=== PATIENT | female | born 1950 | race African-American/Black ===

== ENCOUNTER 2019-04-09 05:09 | Emergency (ER) | payer MEDICARE, BC ==
[~2019-04-09] VITALS: Ht 167.6 cm; Wt 70.0 kg
[~2019-04-09 05:09] MED LIST: ANTIHYPERTENSIVE; ASPIRIN EC LOW81 MG PO; AUGMENTIN500TAB PO; BACTRIM DS1 TAB PO; BAYER ASA325 MG PO; BENTYL10 MG PO; CIPROFLOXACIN250 MG OR; CIPROFLOXACN500 MG PO; CLORAZ DIPOT7.5 MG OR; CLORAZ DIPOT7.5 MG PO; IRON325 M1 PO; LISI20TA5 OP; LISINOPRIL10 MG PO; LISINOPRIL5 MG PO; MEDDOSEPAK OR; PREVACID15 M1 PO; PREVACID30 M1 PO; PREVPAC OR; PRILOSEC20 MG OR; TRANXENE T7.5 MG PO; TUMS500 MG OR; VESICARE5 MG OR; ZYRTEC-D ALG OR
[2019-04-09] MEDS ORDERED: FISH OIL1000 M2 PO (05:29)
[2019-04-09] MEDS ORDERED: ASPIRINCHW 81MG PO (05:30)
[2019-04-09] MEDS ORDERED: ATORVASTATIN CA40 MG PO (05:30)
[2019-04-09] MEDS ORDERED: VITAMIN D32000 UNI3 PO (05:31)
[2019-04-09] MEDS ORDERED: VITAMIN B 6100 MG PO (05:32)
[2019-04-09] MEDS ORDERED: FOSAMAX PLUS PO (05:33)
[2019-04-09] MEDS ORDERED: FOLIC ACID1 M1 PO (05:33)
[2019-04-09] MEDS ORDERED: LOSARTAN POTASS50 MG PO (05:34)
[2019-04-09] MEDS ORDERED: MEDDOSEPAK PO ×2 (06:02→06:05)
[2019-04-09 06:15] VITALS: BP 150/80
== END 2019-04-09 06:19 | disposition home or self-care (01) ==
LOC: ED 05:09
DX: R09.89 Other specified symptoms and signs involving the circulatory and respiratory systems (principal); T44.7X5A Adverse effect of beta-adrenoreceptor antagonists, initial encounter; I10 Essential (primary) hypertension

== ENCOUNTER 2019-06-19 05:42 | Emergency (ER) | payer MEDICARE, BC ==
[~2019-06-19] VITALS: Ht 167.6 cm; Wt 68.1 kg
[~2019-06-19 05:42] MED LIST changes: +ASPIRINCHW 81MG PO; +ATORVASTATIN CA40 MG PO; +FISH OIL1000 M2 PO; +FOLIC ACID1 M1 PO; +FOSAMAX PLUS PO; +LOSARTAN POTASS50 MG PO; +MEDDOSEPAK PO; +VITAMIN B 6100 MG PO; +VITAMIN D32000 UNI3 PO
[2019-06-19] MEDS ORDERED: MEDDOSEPAK PO (07:48)
[2019-06-19] MEDS ORDERED: COREG12.5 MG PO (07:58)
[2019-06-19] MEDS ORDERED: ACID CONTROL MA20 MG PO (08:01)
[2019-06-19] MEDS ORDERED: LEVOCETIRIZINE D5 MG PO (08:01)
[2019-06-19 08:32] VITALS: BP 155/80
== END 2019-06-19 08:32 | disposition home or self-care (01) ==
LOC: ED 05:42
DX: T78.3XXA Angioneurotic edema, initial encounter (principal); I10 Essential (primary) hypertension

== ENCOUNTER 2019-07-30 | Emergency (ER) | payer MEDICARE, BC ==
[~2019-07-30] MED LIST changes: +ACID CONTROL MA20 MG PO; +COREG12.5 MG PO; +LEVOCETIRIZINE D5 MG PO
[2019-07-30 18:42] LABS: HEMATOCRIT 35.9 % (37.0-47.0); IMMATURE GRANULOCYTES 0.4 % (0.0-5.0); MEAN CELL VOLUME 86.3 fL CALC (80.0-100.0); MEAN CORPUSCULAR HGB 26.4 pG CALC (26.0-32.0); MEAN CORPUSCULAR HGB CONC 30.6 g/L CALC (32.0-36.0); NEUT# 5.34 thou/uL (2.00-7.15); RED BLOOD COUNT 4.16 mill/uL (4.20-5.60)
[2019-07-30 18:56] LABS: ANION GAP 11 (6-22 (CALC)); BUN 13 mg/dL (8-23); BUN/CREATININE RATIO 16 (12-20 (CALC)); CARBON DIOXIDE 27 mmol/l (22-30); CHLORIDE 105 mmol/l (95-108); CREATININE 0.8 mg/dL (0.5-1.0); GFR > 60 ML/MIN (>=60 (CALC)); GFR FOR AFR.AMER. > 60 ML/MIN (>=60 (CALC)); POTASSIUM 4.5 mmol/l (3.5-5.1); SODIUM 138 mmol/l (137-146)
== END 2019-07-30 20:05 | disposition left against medical advice (07) ==
PROVIDERS: Family Medicine
DX: T78.3XXA Angioneurotic edema, initial encounter (principal); I10 Essential (primary) hypertension; Z91.19 Patient's noncompliance with other medical treatment and regimen

== ENCOUNTER 2019-08-03 01:50 | Observation (INO) | payer MEDICARE, BC ==
[~2019-08-03] VITALS: Ht 167.6 cm; Wt 70.3 kg
--- NOTE | 2019-08-03 02:02 | NUR ---
AMBULATED TO ROOM
--- NOTE | 2019-08-03 04:17 | NUR ---
PT SLEEPING. NAD
--- NOTE | 2019-08-03 04:40 | NUR ---
PT WAKES UP AND STATES SHE FEELS BETTER.
--- NOTE | 2019-08-03 05:35 | NUR ---
REPORT TO CHRISTOPHER GARNER/ICU
--- NOTE | 2019-08-03 05:45 | NUR ---
TO FLOOR VIA W/C. NAD.
[2019-08-03 06:00] VITALS: BP 148/77
[2019-08-03 06:15] VITALS: BP 152/83
[2019-08-03 06:30] VITALS: BP 139/83
--- NOTE | 2019-08-03 06:37 | NUR ---
PT. ARRIVES VIA WHEELCHAIR FROM ER. AMBULATORY WITH STEADY GAIT FROM WHEELCHAIR TO ICU BED. PT. STABLE. RESPS EVEN AND UNLABORED. ORIENTED TO CALL L[facility] SYSTEM. MAE. KINCAID. SPEECH SOMEWHAT GARBLED, BUT PT. STATES DUE TO TONGUE SWELLING. FULLNESS/MILD SWELLING NOTED TO LT. SIDE OF TONGUE. NO OTHER EDEMA NOTED. WILL CONTINUE TO CLOSELY MONITOR.
--- NOTE | 2019-08-03 07:00 | NUR ---
REPORT RECEIVED FROM CHRISTOPHER GARNER;PT RESTING IN SEMI FOWLERS POSITION;INTRODUCED SELF TO PT AND POC DISCUSSED;RESPIRATIONS EVEN AND UNLABORED ON RA;PT DENIES ANY CURRENT PAIN OR NEEDS;CARDIAC MONITORING IN PLACE;PT DENIES ANY ADDITIONAL NEEDS AND IS ENCOURAGED TO CALL FOR ASSISTANCE IF NEEDED;BED IN THE LOWEST POSITION WITH CALL LIGHT IN REACH;WILL CONTINUE TO MONITOR
[2019-08-03 07:30] VITALS: BP 152/73
--- NOTE | 2019-08-03 07:30 | NUR ---
PT SLEEPING IN SUPINE POSITION,WAKES EASILY TO VERBAL STIMULI;PT A&O X3,VS OBTAINED AND ASSESSMENT COMPLETED;PT DENIES ANY CURRENT PAIN OR DISCOMFORTS,PAIN SCALE AND REPORTING EDUCATED;RESPIRATIONS EVEN AND UNLABORED ON RA,CLEAR LUNG SOUNDS;ABDOMEN SOFT ON PALPATION AND ACTIVE IN ALL 4 QUADRANTS;STRONG PEDAL PULSES;SKIN INTACT;MILD EDEMA NOTED TO LEFT SIDED TONGUE PT REPORTS "ITS MUCH BETTER THAN WHAT IT WAS";CARDIAC MONITORING IN PLACE READING SR;#22G TO LAC FLUSHED AND PATENT,SITE APPEARS HEALTHY;NPO DIET REINFORCED;PT DENIES ANY ADDITIONAL NEEDS AT THIS TIME AND IS ENCOURAGED TO CALL FOR ASSISTANCE IF NEEDED;CALL LIGHT IN REACH;WILL CONTINUE TO MONITOR
--- NOTE | 2019-08-03 08:22 | NUR ---
AT BEDSIDE DISCUSSING POC WITH PT AND VISITOR.
[2019-08-03] MEDS ORDERED: PREDNISONE20 MG PO (08:35)
[2019-08-03] MEDS ORDERED: BENADRYL 50MG C50 MG PO (08:35)
--- NOTE | 2019-08-03 09:13 | NUR ---
ALL DISCHARGE INSTRUCTIONS PROVIDED AT THIS TIME;PT INSTRUCTED TO F/U WITH PCP AND DOCUMENTATION ANALYST;RX FOR PREDNISONE AND BENYDRL FAXED TO [facility] PER PT REQUEST;IV SITE REMOVED AND CARDIAC MONITORIG D/C;PT DENIES ANY ADDITIONAL NEEDS AT THIS TIME;PT REFUSES WHEELCHAIR FOR D/C HOME;FAMILY TO TRANSPORT PT HOME.
--- NOTE | 2019-08-03 09:20 | NUR ---
Discharge instructions given. Patient verbalizes understanding of same. Discharged in stable condition via Ambulatory to Home with family. All belongings sent with pt. PT AMBULATED TO [facility] IN STABLE CONDITION FOR D/C HOME ACCOMPANIED BY FAMILY.FAMILY TO TRANSPORT PT HOME.
== END 2019-08-03 09:20 | disposition home or self-care (01) ==
LOC: ED 01:50 → ED-I 02:15 → ED 05:21 → ICU 05:22
PROVIDERS: ADMIT Internal Medicine; ATTEND Internal Medicine
DX: T78.3XXA Angioneurotic edema, initial encounter (principal); I10 Essential (primary) hypertension; E78.5 Hyperlipidemia, unspecified; K21.9 Gastro-esophageal reflux disease without esophagitis

== ENCOUNTER 2019-08-06 | Emergency (ER) | payer MEDICARE, BC ==
[~2019-08-06] MED LIST changes: +BENADRYL 50MG C50 MG PO; +PREDNISONE20 MG PO
[2019-08-06 18:04] LABS: HEMATOCRIT 33.8 % (37.0-47.0); HEMOGLOBIN 10.7 g/dl (12.0-16.0); IMMATURE GRANULOCYTES 0.7 % (0.0-5.0); MEAN CELL VOLUME 85.6 fL CALC (80.0-100.0); MEAN CORPUSCULAR HGB 27.1 pG CALC (26.0-32.0); MEAN CORPUSCULAR HGB CONC 31.7 g/L CALC (32.0-36.0); NEUT# 5.44 thou/uL (2.00-7.15); RED BLOOD COUNT 3.95 mill/uL (4.20-5.60)
[2019-08-06] MEDS ORDERED: BANOPHEN50 MG PO (18:09)
[2019-08-06 18:30] LABS: ALBUMIN 4.2 g/dL (3.2-5.0); BILIRUBIN, TOTAL 0.7 mg/dL (0.0-1.4); CREATININE 1.1 mg/dL (0.5-1.0); POTASSIUM 4.5 mmol/l (3.5-5.1); TOTAL PROTEIN 7.2 g/dL (6.3-8.2)
== END 2019-08-06 21:39 | disposition home or self-care (01) ==
PROVIDERS: Family Medicine
DX: T78.3XXA Angioneurotic edema, initial encounter (principal); I10 Essential (primary) hypertension

== ENCOUNTER 2019-08-19 | Emergency (ER) | payer MEDICARE, BC ==
[~2019-08-19] MED LIST changes: +BANOPHEN50 MG PO
== END 2019-08-19 10:34 | disposition home or self-care (01) ==
DX: T78.3XXA Angioneurotic edema, initial encounter (principal); I10 Essential (primary) hypertension

== ENCOUNTER 2019-09-02 | Emergency (ER) | payer MEDICARE, BC ==
[2019-09-02] MEDS ORDERED: MEDDOSEPAK PO (09:07)
== END 2019-09-02 09:15 | disposition home or self-care (01) ==
DX: T78.3XXA Angioneurotic edema, initial encounter (principal); I10 Essential (primary) hypertension

== ENCOUNTER 2021-09-17 11:51 | Emergency (ER) | payer MEDICARE, BC ==
[~2021-09-17] VITALS: Ht 167.6 cm; Wt 70.0 kg
[2021-09-17 12:31] LABS: URINE BILIRUBIN - DIPSTICK NEGATIVE (NEGATIVE); URINE BLOOD DIPSTICK NEGATIVE (NEGATIVE); URINE COLOR YELLOW; URINE GLUCOSE - DIPSTICK NEGATIVE (NEGATIVE); URINE KETONE NEGATIVE (NEGATIVE); URINE LEUK ESTERASE NEGATIVE (NEGATIVE); URINE PROTEIN - DIPSTICK NEGATIVE (NEG-TRACE); URINE SPECIFIC GRAVITY 1.015; URINE UROBILINOGEN - DIPSTICK 0.2 E.U./dL (0.2)
[2021-09-17 12:33] LABS: URINE NITRITE - DIPSTICK NEGATIVE (Negative)
[2021-09-17] MEDS ORDERED: CLORAZ DIPOT7.5 MG PO (12:41)
[2021-09-17] MEDS ORDERED: ULTRAM50 MG PO (13:54)
[2021-09-17] MEDS ORDERED: FLEXERIL5 M1 PO (13:54)
[2021-09-17 14:23] VITALS: BP 160/96
== END 2021-09-17 14:23 | disposition home or self-care (01) ==
LOC: ED 11:51
DX: M51.87 Other intervertebral disc disorders, lumbosacral region (principal); I10 Essential (primary) hypertension; E78.00 Pure hypercholesterolemia, unspecified; K21.9 Gastro-esophageal reflux disease without esophagitis

== ENCOUNTER 2024-01-23 15:00 | Emergency (ER) | payer MEDICARE ==
[~2024-01-23] VITALS: Ht 167.6 cm; Wt 71.7 kg
[~2024-01-23 15:00] MED LIST changes: +FLEXERIL5 M1 PO; +ULTRAM50 MG PO
[2024-01-23] MEDS ORDERED: ONDANSETRON 4 MG/TAB ODT SL ONE (15:40)
[2024-01-23] MEDS ORDERED: Pantoprazole Sodium 40 MG VIAL (Protonix) IV ONE (15:55)
[2024-01-23] MEDS ORDERED: FAMOTIDINE 10MG/ML 2ML SDV IV ONE (15:55)
[2024-01-23] MEDS ORDERED: ONDANSETRON HCl 4 MG/2 ML SDV IV ONE (15:55)
[2024-01-23 15:57] VITALS: BP 145/71
[2024-01-23 16:13] LABS: URINE BILIRUBIN - DIPSTICK Negative (NEGATIVE); URINE BLOOD DIPSTICK Negative (NEGATIVE); URINE COLOR Yellow; URINE GLUCOSE - DIPSTICK Negative (NEGATIVE); URINE KETONE Negative (NEGATIVE); URINE LEUK ESTERASE Negative (NEGATIVE); URINE NITRITE - DIPSTICK Negative (Negative); URINE PH 7.5 (4.5-8.0); URINE PROTEIN - DIPSTICK Negative (NEG-TRACE); URINE SPECIFIC GRAVITY 1.015; URINE UROBILINOGEN - DIPSTICK 0.2 E.U./dL (0.2)
[2024-01-23 16:13] LABS: BASO% 0.4 % (0-3); EOS% 1.1 % (0-8); HEMATOCRIT 34.9 % (37.0-47.0); LYMPH% 25.4 % (15-41); MEAN CELL VOLUME 83.3 fL CALC (80.0-100.0); MEAN CORPUSCULAR HGB 26.3 pG CALC (26.0-32.0); MEAN CORPUSCULAR HGB CONC 31.5 g/dL CAL (32.0-36.0); MONO% 7.8 % (2-13); NEUT# 3.08 thou/uL (2.00-7.15); NEUT% 65.3 % (42-76); RED BLOOD COUNT 4.19 mill/uL (4.20-5.60)
[2024-01-23 16:24] LABS: ALBUMIN 4.5 g/dL (3.2-5.0); ALKALINE PHOSPHATASE 95 u/l (38-126); BILIRUBIN, TOTAL 0.7 mg/dL (0.02-1.3); BUN 10 mg/dL (8-23); BUN/CREATININE RATIO 11 (12-20 (CALC)); CARBON DIOXIDE 28 mmol/l (22-30); CHLORIDE 96 mmol/l (95-108); CREATININE 0.9 mg/dL (0.5-1.0); ESTIMATED GFR 68 ML/MIN (>=90 (CALC)); LIPASE 75 u/l (23-300); SGOT/AST 29 u/l (9-36); TOTAL PROTEIN 7.7 g/dL (6.3-8.2)
[2024-01-23] MEDS ORDERED: METHOCARBAMOL500 MG PO (16:26)
[2024-01-23] MEDS ORDERED: NAPROXEN500 MG PO (16:26)
[2024-01-23 16:28] LABS: ANION GAP 9 (6-22 (CALC)); POTASSIUM 3.5 mmol/l (3.5-5.1); SODIUM 129 mmol/l (137-146)
[2024-01-23] MEDS ORDERED: PROTONIX40 M2 PO (17:59)
[2024-01-23 18:12] VITALS: BP 145/71
== END 2024-01-23 18:20 | disposition home or self-care (01) ==
LOC: ED 15:00
PROVIDERS: Nurse Practitioner
DX: R10.13 Epigastric pain (principal); I10 Essential (primary) hypertension; E78.00 Pure hypercholesterolemia, unspecified; K21.9 Gastro-esophageal reflux disease without esophagitis; Z20.822 Contact with and (suspected) exposure to COVID-19
CPT/HCPCS: S0164